=== PATIENT | female | born 1940 | race Caucasian/White ===

== ENCOUNTER → 2016-04-17 | Outpatient (CLI) | payer MEDICARE, BC | END | disposition home or self-care (01) | LOC: PCVCIMAG 09:29 | PROVIDERS: ATTEND Nuclear Medicine Nuclear Cardiology | DX: I74.3 Embolism and thrombosis of arteries of the lower extremities (principal); M79.661 Pain in right lower leg; E11.9 Type 2 diabetes mellitus without complications; E78.5 Hyperlipidemia, unspecified; I10 Essential (primary) hypertension | CPT/HCPCS: 93926 ==

== ENCOUNTER → 2018-06-03 | Outpatient (CLI) | payer MEDICARE, BC ==
--- NOTE | 2018-06-03 19:52 | PCVCIMAG ---
EXAM: ULTRASOUND OF THE THYROID INDICATION: Thyroid nodules. FINDINGS: The right thyroid lobe measures 1.6 x 2.4 x 4.6 cm. The left thyroid lobe measures 1.5 x 2.1 x 4.4 cm. 0.9 x 1.0 cm solid nodule mid right thyroid lobe similar to 2016 study. 0.5 x 0.7 cm solid nodule with calcification mid/lower right thyroid lobe is less prominent than prior study. 0.4 x 0.5 cm hypoechoic solid nodule mid/upper left thyroid lobe unchanged. 0.3 x 0.4 x 0.5 cm solid nodule mid/lower left thyroid lobe unchanged since prior study. IMPRESSION: Multiple thyroid nodules as detailed above showing little overall change since 2016 study. LOC:[id number]
== END | disposition home or self-care (01) ==
LOC: PCVCIMAG 13:44
PROVIDERS: ATTEND Internal Medicine
DX: E04.2 Nontoxic multinodular goiter (principal)
CPT/HCPCS: 76536